=== PATIENT | female | born 1975 | race Caucasian/White ===

== ENCOUNTER 2017-09-07 22:01 | Emergency (ER) | payer BC ==
[2017-09-07 22:12] VITALS: BP 134/84; TEMP 98; O2SAT 98
--- NOTE | 2017-09-07 22:35 | C.PDOC ---
History Of Present Illness 42 y/o female with Hx of nose bleeds presents to ED with complaints of epistaxis of the right nostril. Patient reports she was unable to stop the bleeding with pressure so she came to ER. Denies trauma, headache, dizziness or any other physical complaints. Patient also reports that on her way to the ER the bleeding resolved. Time Seen by Provider: 09/07/17 22:17 Chief Complaint (Nursing): ENT Problem History Per: Patient History/Exam Limitations: None Onset/Duration Of Symptoms: Hrs Current Symptoms Are (Timing): Still Present Symptoms Have Been: Continuous Past Medical History Reviewed: Historical Data, Nursing Documentation, Vital Signs Vital Signs: Last Vital Signs Temp 98 F 09/07/17 22:04 Pulse 74 09/07/17 22:46 Resp 18 09/07/17 22:46 BP 134/84 09/07/17 22:04 Pulse Ox 98 09/07/17 23:47 - Medical History PMH: No Chronic Diseases Surgical History: No Surg Hx Family History: States: Unknown Family Hx - Social History Hx Tobacco Use: No Hx Alcohol Use: Yes Hx Substance Use: No - Immunization History Hx Tetanus Toxoid Vaccination: Yes Hx Influenza Vaccination: Yes Hx Pneumococcal Vaccination: No Review Of Systems Constitutional: Positive for: Other (No Trauma ). Negative for: Fever, Chills ENT: Positive for: Nose Discharge (epistaxis of the right nostril). Negative for: Ear Pain, Nose Pain, Mouth Pain, Throat Pain Gastrointestinal: Negative for: Nausea, Vomiting, Abdominal Pain, Diarrhea Neurological: Negative for: Weakness, Numbness, Headache, Dizziness Physical Exam - Physical Exam Appears: Well, Non-toxic, No Acute Distress Skin: Normal Color, Warm, Dry Head: Atraumatic, Normacephalic Eye(s): bilateral: Normal Inspection Ear(s): Bilateral: Normal Nose: Normal, No Epistaxis, Other (No clots, active bleeding, or septal hematoma ) Oral Mucosa: Moist Throat: Normal, No Erythema, No Exudate Neck: Supple Chest: Symmetrical, No Tenderness Cardiovascular: Rhythm Regular Respiratory: Normal Breath Sounds, No Decreased Breath Sounds, No Rales, No Rhonchi, No Wheezing Neurological/Psych: Oriented x3, Normal Speech, Normal Cognition ED Course And Treatment O2 Sat by Pulse Oximetry: 98 (RA) Pulse Ox Interpretation: Normal 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 Patient is stable in NAD, VSS. Pt is stable for discharge Disposition Counseled Patient/Family Regarding: Diagnosis, Need For Followup - Disposition Referrals: Lazaro Gutierrez MD [Staff Provider] - Disposition: HOME/ ROUTINE Disposition Time: 22:33 Condition: STABLE Additional Instructions: May use saline drops to moisturize nose/ Keep temperature cool at home Follow up with ENT fo persistent bleeding Return to ER if worse Instructions: Nosebleeds (DC) Forms: [employer] (Latvian) - Clinical Impression Clinical Impression: Nosebleed - PA / RESERVATIONIST / Resident Statement MD/DO has reviewed & agrees with the documentation as recorded. - Scribe Statement The provider has reviewed the documentation as recorded by the Kashibclaudette Paul All medical record entries made by the Kashibclaudette were at my direction and personally dictated by me. I have reviewed the chart and agree that the record accurately reflects my personal performance of the history, physical exam, medical decision making, and the department course for this patient. I have also personally directed, reviewed, and agree with the discharge instructions and disposition.
[2017-09-07 22:48] VITALS: PULSE 74; RESP 18
== END 2017-09-07 22:51 | disposition home or self-care (01) ==
LOC: C.ER 22:01
DX: R04.0 Epistaxis (principal)